=== PATIENT | female | born 1960 | race Caucasian/White ===

== ENCOUNTER → 2016-07-11 | Outpatient (CLI) | payer OTHER ==
[~2016-07-11] MED LIST: BENZONATATE200 MG PO; BLEPH-105 ML OP; BYDUREON2 MG SQ; ETODOLAC500 MG PO; FLUNISOLIDE25 ML; JANUVIA 100 MG100 MG PO; LASIX 40 MG TAB40 MG PO; LEVOTHYROXINE100 MCG PO; LISINOPRIL5 MG PO; LOPRESSOR 25 MG25 MG PO; METHOCARBAMOL750 MG PO; NYSTATIN1 EAC1 TOP; POTASSIUM CHLO20 ME1 PO; SIMVASTATIN40 MG PO; SULFACETAMIDE; ZANTAC300 MG PO
== END ==
LOC: SLEEP 21:30
DX: G47.33 Obstructive sleep apnea (adult) (pediatric) (principal)
CPT/HCPCS: 95810

== ENCOUNTER → 2016-07-12 | Outpatient (CLI) | payer OTHER | LOC: RT 06:59 | DX: G47.33 Obstructive sleep apnea (adult) (pediatric) (principal) | CPT/HCPCS: 36600; 82803 ==

== ENCOUNTER 2016-08-12 13:56 | Observation (INO) | payer OTHER ==
[~2016-08-12] VITALS: Ht 152.4 cm; Wt 173.3 kg
[2016-08-12 14:53] LABS: HEMOGLOBIN 14.3 gm/dl (12.3-15.3); RED BLOOD COUNT 5.04 M/UL (4.00-5.10); WHITE BLOOD COUNT 9.2 K/UL (4.5-11.0)
[2016-08-12 15:19] LABS: BUN/CREATININE RATIO 19 (0-10)
[2016-08-12] MEDS ORDERED: ETODOLAC500 MG PO (18:21)
[2016-08-12] MEDS ORDERED: BYDUREON2 MG SQ (18:21)
[2016-08-12] MEDS ORDERED: LASIX 40 MG TAB40 MG PO (18:22)
[2016-08-12] MEDS ORDERED: LEVOTHYROXINE100 MCG PO (18:22)
[2016-08-12] MEDS ORDERED: JANUVIA 100 MG100 MG PO (18:23)
[2016-08-12] MEDS ORDERED: LOPRESSOR 25 MG25 MG PO (18:23)
[2016-08-12] MEDS ORDERED: POTASSIUM CHLO20 ME1 PO (18:24)
[2016-08-12] MEDS ORDERED: SIMVASTATIN40 MG PO (18:24)
[2016-08-12] MEDS ORDERED: ZANTAC300 MG PO (18:25)
[2016-08-12] MEDS ORDERED: LISINOPRIL5 MG PO (18:25)
[2016-08-12] MEDS ORDERED: METHOCARBAMOL750 MG PO (18:25)
[2016-08-12] MEDS ORDERED: BENZONATATE200 MG PO (18:27)
[2016-08-12] MEDS ORDERED: SULFACETAMIDE (18:34)
[2016-08-13] MEDS ORDERED: BLEPH-105 ML OP (17:07)
[2016-08-13] MEDS ORDERED: FLUNISOLIDE25 ML (18:21)
[2016-08-13] MEDS ORDERED: NYSTATIN1 EAC1 TOP (18:23)
== END 2016-08-13 18:00 | disposition home or self-care (01) ==
LOC: ER1 13:56 → ZEROF 16:16 → M/S 17:47
PROVIDERS: Emergency Medicine; ADMIT Internal Medicine
DX: R07.89 Other chest pain (principal); I48.92 Unspecified atrial flutter; I10 Essential (primary) hypertension; E78.5 Hyperlipidemia, unspecified; E11.9 Type 2 diabetes mellitus without complications; E03.9 Hypothyroidism, unspecified; G47.33 Obstructive sleep apnea (adult) (pediatric); K21.9 Gastro-esophageal reflux disease without esophagitis; E66.01 Morbid (severe) obesity due to excess calories; Z99.81 Dependence on supplemental oxygen; Z88.0 Allergy status to penicillin; Z88.6 Allergy status to analgesic agent; Z88.8 Allergy status to other drugs, medicaments and biological substances; Z79.899 Other long term (current) drug therapy
CPT/HCPCS: ECHO; 36415; 71010; 73030; 80053; 81001; 82550; 82553; 82962; 83036; 83690; 83735; 83874; 83880; 84443; 84484; 85025; 93005; 93306; 99285; G0378; J1650

== ENCOUNTER → 2016-10-10 | Outpatient (CLI) | payer OTHER | LOC: SLEEP 08:55 | DX: G47.33 Obstructive sleep apnea (adult) (pediatric) (principal) | CPT/HCPCS: 95811 ==

== ENCOUNTER → 2020-11-08 | Outpatient (CLI) | payer OTHER ==
[~2020-11-08] MED LIST changes: +AMLODIPINE BESYL5 MG NG; +BAYER CHEWABLE81 MG PO; +BYDUREON P2 MG/0.65 SQ; +CARAFATE 1 GM TA1 GM PO; +CIPRO500 MG PO; +CLINDAMYCIN HC300 MG PO; +DICLOFENAC POTA50 MG PO; +EFFER-K 20 MEQ20 MEQ PO; +ELIQUIS5 MG PO; +FLONASE 0.05% N16 GM; -FLUNISOLIDE25 ML; +HYDROCODON-ACE1 EAC4 PO; +LASIX40 MG PO; +LEVAQUIN750 MG PO; +LOPRESSOR 25 MG25 MG NG; +MEDROL DOSEPAK 24 MG PO; -METHOCARBAMOL750 MG PO; +MULTAQ 400 MG400 MG PO; +NASALIDE INH SO25 ML; +NEOMYCIN-POLYMY10 ML EARBOTH; +OMEPRAZOLE40 MG PO; +PHENERGAN 25 MG25 M1 PO; +ROBAXIN-750750 MG PO; +SINGULAIR10 MG PO; +VITAMIN B-121000 MCG PO; +VOLTAREN ARTHRI20 GM TP; +XARELTO20 MG PO; +XYZAL5 MG PO; +ZESTRIL5 MG PO; +ZOFRAN4 MG PO
== END ==
LOC: HEART 5 14:01
DX: R94.31 Abnormal electrocardiogram [ECG] [EKG] (principal)

== ENCOUNTER → 2020-11-15 | Outpatient (CLI) | payer OTHER ==
[2020-11-15 10:59] LABS: HEMOGLOBIN 12.1 gm/dl (12.3-15.3); RED BLOOD COUNT 4.21 M/UL (4.00-5.10); WHITE BLOOD COUNT 8.3 K/UL (4.5-11.0)
== END ==
LOC: LAB 09:56
PROVIDERS: Internal Medicine Cardiovascular Disease
DX: I48.91 Unspecified atrial fibrillation (principal); I10 Essential (primary) hypertension; I49.5 Sick sinus syndrome; I45.5 Other specified heart block; R09.89 Other specified symptoms and signs involving the circulatory and respiratory systems
CPT/HCPCS: 36415; 71046; 80048; 85025

== ENCOUNTER 2020-11-17 12:16 | Outpatient (CLI) | payer OTHER ==
[~2020-11-17] VITALS: Ht 170.2 cm; Wt 153.3 kg
[~2020-11-17 12:16] MED LIST changes: -BAYER CHEWABLE81 MG PO; -CIPRO500 MG PO; -CLINDAMYCIN HC300 MG PO; -DICLOFENAC POTA50 MG PO; -EFFER-K 20 MEQ20 MEQ PO; -ELIQUIS5 MG PO; -HYDROCODON-ACE1 EAC4 PO; -LASIX40 MG PO; -MULTAQ 400 MG400 MG PO; -NEOMYCIN-POLYMY10 ML EARBOTH; -PHENERGAN 25 MG25 M1 PO; -VITAMIN B-121000 MCG PO; -VOLTAREN ARTHRI20 GM TP; -ZESTRIL5 MG PO
[2020-11-17] MEDS ORDERED: DICLOFENAC POTA50 MG PO (13:04)
[2020-11-17] MEDS ORDERED: BAYER CHEWABLE81 MG PO (13:04)
[2020-11-17] MEDS ORDERED: EFFER-K 20 MEQ20 MEQ PO (13:04)
[2020-11-17] MEDS ORDERED: CIPRO500 MG PO (13:05)
[2020-11-17] MEDS ORDERED: VITAMIN B-121000 MCG PO (13:05)
[2020-11-17] MEDS ORDERED: VOLTAREN ARTHRI20 GM TP (13:06)
[2020-11-17] MEDS ORDERED: NEOMYCIN-POLYMY10 ML EARBOTH (13:11)
[2020-11-17] MEDS ORDERED: PHENERGAN 25 MG25 M1 PO (13:12)
[2020-11-17] MEDS ORDERED: ZESTRIL5 MG PO (13:12)
[2020-11-17] MEDS ORDERED: ELIQUIS5 MG PO (13:13)
[2020-11-17] MEDS ORDERED: LASIX40 MG PO (13:14)
[2020-11-17] MEDS ORDERED: LOPRESSOR 25 MG25 MG PO (13:15)
[2020-11-17] MEDS ORDERED: CLINDAMYCIN HC300 MG PO (15:58)
[2020-11-17] MEDS ORDERED: HYDROCODON-ACE1 EAC4 PO (15:58)
[2020-11-17] MEDS ORDERED: LASIX 40 MG TAB40 MG PO (16:38)
[2020-11-18] MEDS ORDERED: MULTAQ 400 MG400 MG PO (15:02)
== END 2020-11-18 16:33 | disposition home or self-care (01) ==
LOC: CATH 12:16 → M/S 16:10 → CATH 11-18 16:33
DX: I49.5 Sick sinus syndrome (principal); I48.0 Paroxysmal atrial fibrillation; I25.10 Atherosclerotic heart disease of native coronary artery without angina pectoris; I11.0 Hypertensive heart disease with heart failure; I50.32 Chronic diastolic (congestive) heart failure; I48.92 Unspecified atrial flutter; I45.5 Other specified heart block; E78.5 Hyperlipidemia, unspecified; E11.9 Type 2 diabetes mellitus without complications; G47.33 Obstructive sleep apnea (adult) (pediatric); J96.11 Chronic respiratory failure with hypoxia; E66.01 Morbid (severe) obesity due to excess calories; Z79.82 Long term (current) use of aspirin; Z79.899 Other long term (current) drug therapy; Z90.49 Acquired absence of other specified parts of digestive tract; Z98.890 Other specified postprocedural states; Z87.891 Personal history of nicotine dependence; Z82.49 Family history of ischemic heart disease and other diseases of the circulatory system; Z68.43 Body mass index [BMI] 50.0-59.9, adult
CPT/HCPCS: 33208; 71045; 82962; 93005; 99152; 99153; C1785; C1898; J1200; J1644; J1742; J2250; J3010; J3370; J7040; J7050; J7070; Q9965

== ENCOUNTER 2021-02-10 10:34 | Emergency (ER) | payer OTHER ==
[~2021-02-10] VITALS: Ht 170.2 cm; Wt 148.3 kg
[~2021-02-10 10:34] MED LIST changes: +BAYER CHEWABLE81 MG PO; +CIPRO500 MG PO; +CLINDAMYCIN HC300 MG PO; +DICLOFENAC POTA50 MG PO; +EFFER-K 20 MEQ20 MEQ PO; +ELIQUIS5 MG PO; +HYDROCODON-ACE1 EAC4 PO; +LASIX40 MG PO; +MULTAQ 400 MG400 MG PO; +NEOMYCIN-POLYMY10 ML EARBOTH; -NYSTATIN1 EAC1 TOP; +NYSTATIN1 EAC2 TOP; +PHENERGAN 25 MG25 M1 PO; +VITAMIN B-121000 MCG PO; +VOLTAREN ARTHRI20 GM TP; +ZESTRIL5 MG PO
== END 2021-02-10 14:25 | disposition home or self-care (01) ==
LOC: ER1 10:34
DX: U07.1 COVID-19 (principal); J12.82 Pneumonia due to coronavirus disease 2019; I48.91 Unspecified atrial fibrillation; I25.10 Atherosclerotic heart disease of native coronary artery without angina pectoris; J44.9 Chronic obstructive pulmonary disease, unspecified; I12.9 Hypertensive chronic kidney disease with stage 1 through stage 4 chronic kidney disease, or unspecified chronic kidney disease; E11.22 Type 2 diabetes mellitus with diabetic chronic kidney disease; N18.30 Chronic kidney disease, stage 3 unspecified; Z86.718 Personal history of other venous thrombosis and embolism; Z90.49 Acquired absence of other specified parts of digestive tract; Z88.1 Allergy status to other antibiotic agents; Z88.0 Allergy status to penicillin; Z88.5 Allergy status to narcotic agent; Z23 Encounter for immunization; Z95.1 Presence of aortocoronary bypass graft
CPT/HCPCS: 71045; 99285; M0243

== ENCOUNTER 2021-02-14 00:28 | Inpatient (IN) | payer OTHER ==
[~2021-02-14] VITALS: Ht 170.2 cm; Wt 161.5 kg
[2021-02-14 00:52] LABS: HEMOGLOBIN 11.7 gm/dl (12.3-15.3); RED BLOOD COUNT 4.4 M/UL (4.00-5.10); WHITE BLOOD COUNT 8.2 K/UL (4.5-11.0)
[2021-02-14 01:14] LABS: BUN/CREATININE RATIO 21 (0-10)
[2021-02-14 04:57] LABS: HEMOGLOBIN 11.8 gm/dl (12.3-15.3); RED BLOOD COUNT 4.42 M/UL (4.00-5.10); WHITE BLOOD COUNT 8.1 K/UL (4.5-11.0)
[2021-02-14] MEDS ORDERED: ULTRAM50 MG PO (09:44)
[2021-02-14] MEDS ORDERED: BACTRIM DS TAB1 EACH PO (09:44)
[2021-02-14] MEDS ORDERED: SIMVASTATIN10 MG PO (09:44)
[2021-02-14] MEDS ORDERED: ONDANSETRON HCL4 MG PO (09:45)
--- NOTE | 2021-02-14 21:15 | NUR ---
DR WADE AT BEDSIDE TO SEE PATIENT. REPORTED TO HIM LAST SET OF VITALS. BP 130/100 HR 78 RR 21 O2 93%. ORDERS TO LET HIM KNOW IS SYSTOLIC IS 160 OR GREATER BUT FOR NOW TO JUST MONITOR IT.
--- NOTE | 2021-02-14 22:21 | NUR ---
PATIENT CONTINUES TO PULL OF HER NASAL CANNULA AND HER OXYGEN DROPS QUICKLY TO THE 60'S AND 70'S. CALLED RESPIRATORY AND PT PLACED ON BIPAP MASK. TOLERATING WELL NOW. 02 IS 99%
--- NOTE | 2021-02-15 01:20 | NUR ---
PATIENT CONTINUING TO PULL HER OXYGEN OFF AND STRIPPING HER GOWN OFF ALONG WITH THE MONITOR. NOTIFIED AND ORDERS FOR RESTRAINTS RECIEVED. NOTIFIED ROEL ESPINOS[employer]ERAL GREETER. MULTIPLE REDIRECTION ATTEMPTS TRIED PRIOR TO THIS WITH ALL UNSUCCESSFUL.
[2021-02-15 03:57] LABS: HEMOGLOBIN 11.3 gm/dl (12.3-15.3); RED BLOOD COUNT 4.26 M/UL (4.00-5.10); WHITE BLOOD COUNT 7.7 K/UL (4.5-11.0)
--- NOTE | 2021-02-15 04:25 | NUR ---
CALLED [facility] OF 5.5 TO ORDERS RECIEVED.
--- NOTE | 2021-02-15 23:08 | NUR ---
2109 PATIENT PULLING OFF MASK AND OXYGEN DESPITE STAFF TRYING TO REDIRECT AND DISTRACT. SHE IS UNCOOPERATIVE AND NON COMPLIANT. CONFUSED. NOTIFIED DR WARREN AND ORDERS RECIEVED.
--- NOTE | 2021-02-16 01:30 | NUR ---
LATE ENTRY 1930 UPON ASSESSMENT PATIENT'S LEFT WRIST HAS VERY LARGE ECCYMOSIS SPOT. DUE TO PATIENT PULLING AGAINST RESTRAINTS. RESTRAINTS REMOVED AND NOTIFIED MD. XIAO AT BEDSIDE TO HELP MONITOR PATIENT AND KEEP HER FROM PULLING OXYGEN OFF.
[2021-02-16 05:24] LABS: HEMOGLOBIN 10.1 gm/dl (12.3-15.3); RED BLOOD COUNT 3.96 M/UL (4.00-5.10); WHITE BLOOD COUNT 7.5 K/UL (4.5-11.0)
[2021-02-17 08:02] LABS: HEMOGLOBIN 11.9 gm/dl (12.3-15.3); WHITE BLOOD COUNT 9.2 K/UL (4.5-11.0)
[2021-02-17 08:04] LABS: RED BLOOD COUNT 4.64 M/UL (4.00-5.10)
[2021-02-17 22:44] LABS: BUN/CREATININE RATIO 39 (0-10)
[2021-02-18 06:19] LABS: HEMOGLOBIN 10.1 gm/dl (12.3-15.3)
[2021-02-18 06:23] LABS: RED BLOOD COUNT 3.93 M/UL (4.00-5.10); WHITE BLOOD COUNT 4.2 K/UL (4.5-11.0)
[2021-02-18 06:43] LABS: BUN/CREATININE RATIO 38 (0-10)
[2021-02-19 03:58] LABS: HEMOGLOBIN 10.3 gm/dl (12.3-15.3); RED BLOOD COUNT 3.99 M/UL (4.00-5.10)
[2021-02-19 04:24] LABS: BUN/CREATININE RATIO 44 (0-10)
[2021-02-19 05:26] LABS: WHITE BLOOD COUNT 5.3 K/UL (4.5-11.0)
[2021-02-20 05:33] LABS: HEMOGLOBIN 10.4 gm/dl (12.3-15.3); RED BLOOD COUNT 3.99 M/UL (4.00-5.10)
[2021-02-20 06:35] LABS: BUN/CREATININE RATIO 60 (0-10)
[2021-02-21 05:12] LABS: HEMOGLOBIN 11.3 gm/dl (12.3-15.3); RED BLOOD COUNT 4.36 M/UL (4.00-5.10)
[2021-02-21 05:19] LABS: WHITE BLOOD COUNT 7.1 K/UL (4.5-11.0)
[2021-02-21 05:32] LABS: BUN/CREATININE RATIO 73 (0-10)
[2021-02-22 04:49] LABS: HEMOGLOBIN 11.6 gm/dl (12.3-15.3); RED BLOOD COUNT 4.49 M/UL (4.00-5.10)
[2021-02-22 04:52] LABS: WHITE BLOOD COUNT 5.3 K/UL (4.5-11.0)
[2021-02-22 05:03] LABS: BUN/CREATININE RATIO 77 (0-10)
[2021-02-23 08:40] LABS: BUN/CREATININE RATIO 74 (0-10)
[2021-02-23 08:50] LABS: HEMOGLOBIN 11.8 gm/dl (12.3-15.3); RED BLOOD COUNT 4.5 M/UL (4.00-5.10)
[2021-02-23 08:52] LABS: WHITE BLOOD COUNT 6.9 K/UL (4.5-11.0)
[2021-02-24 05:51] LABS: HEMOGLOBIN 12.6 gm/dl (12.3-15.3)
[2021-02-24 05:57] LABS: WHITE BLOOD COUNT 9.8 K/UL (4.5-11.0)
[2021-02-24 06:15] LABS: BUN/CREATININE RATIO 61 (0-10)
--- NOTE | 2021-02-24 11:16 | NUR ---
AT [address] BERNAL IN REGARDS TO PATIENT CONTINUED NAUSEA AND PULMONOLOGY'S STANDPOINT ON TRANSFERRING THE PATIENT TO MED-SURG. STATED SHE WOULD PUT IN ORDERS FOR MEDICATIONS AND TRANSFER.
--- NOTE | 2021-02-24 11:19 | NUR ---
LATE ENTRY AT [address] WARREN IN REGARDS TO PATIENT EXPERIENCING NAUSEA RECEIVED ORDER FOR LAKISHA.
--- NOTE | 2021-02-24 18:56 | NUR ---
LATE ENTRY AT [address] BERNAL REGARDING PATIENT BACK PAIN AND CONSTIPATION. NEW ORDERS RECEIVED. TOLD DR. BERNAL WOULD CONTACT FAMILY IN REGARDS TO TRUE ALLERGIES WITH TRAMADOL AND CODEINE.
--- NOTE | 2021-02-24 18:58 | NUR ---
AT 1750 SPOKE WITH PATIENT DAUGHTER WHO STATE SHE WAS UNSURE WHAT MEDICATIONS THE PATIENT WAS TAKING FOR PAIN. PATEINT DAUGHTER STATED SHE WOULD CONTACT THE PRIMARY PHYSICIAN AND VERFIY ALLERGIES AND WHAT MEDICATIONS THE PATIENT WAS ON.
[2021-02-25 05:47] LABS: HEMOGLOBIN 11.9 gm/dl (12.3-15.3); RED BLOOD COUNT 4.51 M/UL (4.00-5.10); WHITE BLOOD COUNT 11.4 K/UL (4.5-11.0)
[2021-02-25 06:15] LABS: BUN/CREATININE RATIO 61 (0-10)
[2021-02-26 03:18] LABS: RED BLOOD COUNT 4.26 M/UL (4.00-5.10)
[2021-02-26 03:19] LABS: WHITE BLOOD COUNT 6.4 K/UL (4.5-11.0)
[2021-02-26 03:51] LABS: BUN/CREATININE RATIO 50 (0-10)
[2021-02-27 04:59] LABS: HEMOGLOBIN 10.7 gm/dl (12.3-15.3); RED BLOOD COUNT 4.16 M/UL (4.00-5.10)
[2021-02-27 05:01] LABS: WHITE BLOOD COUNT 8.3 K/UL (4.5-11.0)
[2021-02-27 05:26] LABS: BUN/CREATININE RATIO 39 (0-10)
[2021-02-28 09:59] LABS: HEMOGLOBIN 10.6 gm/dl (12.3-15.3); RED BLOOD COUNT 3.97 M/UL (4.00-5.10); WHITE BLOOD COUNT 7.8 K/UL (4.5-11.0)
[2021-02-28 10:23] LABS: BUN/CREATININE RATIO 31 (0-10)
[2021-03-01 03:37] LABS: HEMOGLOBIN 10.4 gm/dl (12.3-15.3); RED BLOOD COUNT 3.91 M/UL (4.00-5.10); WHITE BLOOD COUNT 7.9 K/UL (4.5-11.0)
[2021-03-01 04:04] LABS: BUN/CREATININE RATIO 25 (0-10)
[2021-03-02 03:24] LABS: HEMOGLOBIN 9.9 gm/dl (12.3-15.3); RED BLOOD COUNT 3.73 M/UL (4.00-5.10); WHITE BLOOD COUNT 8.7 K/UL (4.5-11.0)
[2021-03-02 04:07] LABS: BUN/CREATININE RATIO 19 (0-10)
[2021-03-02] MEDS ORDERED: ACETAMINOPHEN325 MG PO (09:38)
[2021-03-02] MEDS ORDERED: POLYETHYLENE GL17 GM PO (09:38)
[2021-03-02] MEDS ORDERED: DOCUSATE SODIU100 MG PO (09:38)
[2021-03-02] MEDS ORDERED: TRAMADOL HCL50 MG PO (09:38)
[2021-03-02] MEDS ORDERED: REMERON 15 MG T15 MG PO (09:38)
== END 2021-03-02 20:45 | DRG 207 ==
LOC: ER1 00:28 → CDU 03:07 → PROG CARE 03:07 → CCU 03:07 → PROG CARE 05:34 → CCU 02-17 09:17 → PROG CARE 02-25 14:16
PROVIDERS: Family Medicine; Internal Medicine; Internal Medicine Infectious Disease; Internal Medicine Nephrology; Internal Medicine Pulmonary Disease; ADMIT Internal Medicine
PROC: 8E0ZXY6 Isolation (ICD-10-PCS; 2021-02-14)
PROC: 5A0945A Assistance with Respiratory Ventilation, 24-96 Consecutive Hours, High Flow/Velocity Cannula (ICD-10-PCS; 2021-02-14)
PROC: 5A1955Z Respiratory Ventilation, Greater than 96 Consecutive Hours (ICD-10-PCS; 2021-02-17)
PROC: 02HV33Z Insertion of Infusion Device into Superior Vena Cava, Percutaneous Approach (ICD-10-PCS; 2021-02-17)
PROC: B548ZZA Ultrasonography of Superior Vena Cava, Guidance (ICD-10-PCS; 2021-02-17)
PROC: 0BH17EZ Insertion of Endotracheal Airway into Trachea, Via Natural or Artificial Opening (ICD-10-PCS; 2021-02-17)
PROC: 3E0333Z Introduction of Anti-inflammatory into Peripheral Vein, Percutaneous Approach (ICD-10-PCS; 2021-02-17)
PROC: 0DH63UZ Insertion of Feeding Device into Stomach, Percutaneous Approach (ICD-10-PCS; principal; 2021-02-18)
PROC: 3E0G76Z Introduction of Nutritional Substance into Upper GI, Via Natural or Artificial Opening (ICD-10-PCS; 2021-02-18)
PROC: 5A0945A Assistance with Respiratory Ventilation, 24-96 Consecutive Hours, High Flow/Velocity Cannula (ICD-10-PCS; 2021-02-22)
DX: U07.1 COVID-19 (principal); J12.82 Pneumonia due to coronavirus disease 2019; J80 Acute respiratory distress syndrome; N17.0 Acute kidney failure with tubular necrosis; J15.9 Unspecified bacterial pneumonia; G93.41 Metabolic encephalopathy; E66.2 Morbid (severe) obesity with alveolar hypoventilation; J98.11 Atelectasis; I50.32 Chronic diastolic (congestive) heart failure; J44.0 Chronic obstructive pulmonary disease with (acute) lower respiratory infection; E87.0 Hyperosmolality and hypernatremia; I47.1 Supraventricular tachycardia; E86.0 Dehydration; E87.5 Hyperkalemia; R53.81 Other malaise; F32.A Depression, unspecified; F41.9 Anxiety disorder, unspecified; L89.156 Pressure-induced deep tissue damage of sacral region; E66.01 Morbid (severe) obesity due to excess calories; G47.33 Obstructive sleep apnea (adult) (pediatric); E11.9 Type 2 diabetes mellitus without complications; E78.5 Hyperlipidemia, unspecified; E03.9 Hypothyroidism, unspecified; I49.5 Sick sinus syndrome; Z95.0 Presence of cardiac pacemaker; Z91.14 Patient's other noncompliance with medication regimen; Z79.4 Long term (current) use of insulin; Z88.5 Allergy status to narcotic agent; Z88.0 Allergy status to penicillin; Z82.49 Family history of ischemic heart disease and other diseases of the circulatory system; Z80.6 Family history of leukemia
CPT/HCPCS: 31500; 36415; 36600; 70450; 71045; 74018; 80048; 80053; 82550; 82553; 82803; 82962; 83036; 83605; 83735; 83874; 83880; 84100; 84132; 84484; 85025; 85027; 86140; 87040; 87070; 87205; 92526; 92610; 94003; 94640; 94660; 94760; 96374; 96375; 97110; 97110-GP-CQ; 97162; 97167; 97530-GP-CQ; 99285; J0330; J0456; J0696; J1100; J1205; J1630; J1940; J2060; J2185; J2405; J2550; J2704; J2930; J3010; J3486; J7030; J7040; J7120; U0002

== ENCOUNTER → 2021-03-24 | Outpatient (CLI) | payer OTHER ==
[~2021-03-24] MED LIST changes: +ACETAMINOPHEN325 MG PO; +BACTRIM DS TAB1 EACH PO; +DOCUSATE SODIU100 MG PO; +ONDANSETRON HCL4 MG PO; +POLYETHYLENE GL17 GM PO; +REMERON 15 MG T15 MG PO; +SIMVASTATIN10 MG PO; +TRAMADOL HCL50 MG PO; +ULTRAM50 MG PO
== END ==
LOC: WCC 08:00
DX: L89.303 Pressure ulcer of unspecified buttock, stage 3 (principal); Z88.0 Allergy status to penicillin; Z87.891 Personal history of nicotine dependence; Z88.5 Allergy status to narcotic agent; Z79.01 Long term (current) use of anticoagulants; E11.622 Type 2 diabetes mellitus with other skin ulcer; E66.01 Morbid (severe) obesity due to excess calories; Z86.16 Personal history of COVID-19; E11.22 Type 2 diabetes mellitus with diabetic chronic kidney disease; I48.91 Unspecified atrial fibrillation; I10 Essential (primary) hypertension; N18.9 Chronic kidney disease, unspecified; Z68.42 Body mass index [BMI] 45.0-49.9, adult; Z88.6 Allergy status to analgesic agent

== ENCOUNTER → 2021-03-31 | Outpatient (CLI) | payer OTHER ==
[~2021-03-31] MED LIST changes: +ALLOPURINOL300 MG PO; +FUROSEMIDE40 MG PO
== END ==
LOC: WCC 07:52
DX: L89.300 Pressure ulcer of unspecified buttock, unstageable (principal); E11.622 Type 2 diabetes mellitus with other skin ulcer; I11.0 Hypertensive heart disease with heart failure; I50.9 Heart failure, unspecified; J44.9 Chronic obstructive pulmonary disease, unspecified; E66.01 Morbid (severe) obesity due to excess calories; Z79.01 Long term (current) use of anticoagulants; Z68.42 Body mass index [BMI] 45.0-49.9, adult; Z86.16 Personal history of COVID-19; E11.22 Type 2 diabetes mellitus with diabetic chronic kidney disease; I48.91 Unspecified atrial fibrillation; Z72.3 Lack of physical exercise; Z88.0 Allergy status to penicillin; Z88.5 Allergy status to narcotic agent; Z88.6 Allergy status to analgesic agent

== ENCOUNTER 2021-04-04 16:14 | Inpatient (IN) | payer OTHER ==
[~2021-04-04] VITALS: Ht 170.2 cm; Wt 132.1 kg
[~2021-04-04 16:14] MED LIST changes: -ALLOPURINOL300 MG PO; -FUROSEMIDE40 MG PO
[2021-04-04 19:21] LABS: RED BLOOD COUNT 4.05 M/UL (4.00-5.10); WHITE BLOOD COUNT 7.8 K/UL (4.5-11.0)
[2021-04-05 07:30] LABS: RED BLOOD COUNT 3.78 M/UL (4.00-5.10)
[2021-04-05] MEDS ORDERED: TRAMADOL HCL50 MG PO (09:45)
[2021-04-05] MEDS ORDERED: FUROSEMIDE40 MG PO ×2 (09:46→09:47)
[2021-04-05] MEDS ORDERED: ALLOPURINOL300 MG PO (09:46)
[2021-04-05] MEDS ORDERED: LISINOPRIL5 MG PO (09:47)
[2021-04-05] MEDS ORDERED: FLONASE 0.05% N16 GM (09:47)
[2021-04-05] MEDS ORDERED: LEVOTHYROXINE100 MCG PO (09:48)
[2021-04-05 22:59] LABS: ACINETOBACTER BAUMANNII Not Detected (Negative); CANDIDA ALBICANS Not Detected (Negative); CANDIDA KRUSEI Not Detected (Negative); CANDIDA TROPICALIS Not Detected (Negative); ENTEROCOCCUS Not Detected (Negative); ESCHERICHIA COLI Not Detected (Negative); HAEMOPHILUS INFLUENZAE Not Detected (Negative); KLEBSIELLA OXYTOCA Not Detected (Negative); KLEBSIELLA PNEUMONIAE Not Detected (Negative); KPC-CARBAPENEM-RESISTANCE GENE Not Detected (Negative); PROTEUS Not Detected (Negative); PSEUDOMONAS AERUGINOSA Not Detected (Negative); SERRATIA MARCESANS Not Detected (Negative); STAPHYLOCOCCUS Not Detected (Negative); STAPHYLOCOCCUS AUREUS Not Detected (Negative); STREP AGALACTIAE (GROUP B) Not Detected (Negative); STREP PYOGENES (GROUP A) Not Detected (Negative); mecA (METHICILLIN RESIST GENE Not Detected (Negative); vanA/B (VANCOMYCIN RESIST GENE Not Detected (Negative)
[2021-04-06 00:44] LABS: STREPTOCOCCUS DETECTED (Negative)
[2021-04-06 04:58] LABS: RED BLOOD COUNT 3.42 M/UL (4.00-5.10); WHITE BLOOD COUNT 4.9 K/UL (4.5-11.0)
[2021-04-08 06:54] LABS: HEMOGLOBIN 9.1 gm/dl (12.3-15.3); RED BLOOD COUNT 3.32 M/UL (4.00-5.10); WHITE BLOOD COUNT 5.6 K/UL (4.5-11.0)
[2021-04-09 08:25] LABS: HEMOGLOBIN 8.4 gm/dl (12.3-15.3); RED BLOOD COUNT 3.19 M/UL (4.00-5.10)
[2021-04-10 07:15] LABS: HEMOGLOBIN 8.4 gm/dl (12.3-15.3); RED BLOOD COUNT 3.19 M/UL (4.00-5.10); WHITE BLOOD COUNT 5.3 K/UL (4.5-11.0)
[2021-04-11 07:05] LABS: HEMOGLOBIN 8.6 gm/dl (12.3-15.3); RED BLOOD COUNT 3.18 M/UL (4.00-5.10); WHITE BLOOD COUNT 4.8 K/UL (4.5-11.0)
[2021-04-11 07:32] LABS: BUN/CREATININE RATIO 15 (0-10)
--- NOTE | 2021-04-11 15:06 | NUR ---
[id number] midline placed in the left brachial vein with ultrasound guidance. Aspirates and flushes easily. Reference# [id number]
[2021-04-12] MEDS ORDERED: FUROSEMIDE40 MG PO (08:48)
[2021-04-12] MEDS ORDERED: ROCEPHIN IM/I2000 MG IV (08:49)
[2021-04-12] MEDS ORDERED: HYDROCODONE-ACET5 ML PO (08:54)
== END 2021-04-12 15:02 | disposition home health service (06) | DRG 682 ==
LOC: ER1 16:14 → CDU 22:21 → M/S 22:21
PROVIDERS: Internal Medicine; Internal Medicine Nephrology; Physician Assistant; Student in an Organized Health Care Education/Training Program; ADMIT Emergency Medicine
DX: N17.9 Acute kidney failure, unspecified (principal); L89.154 Pressure ulcer of sacral region, stage 4; Z20.822 Contact with and (suspected) exposure to COVID-19; I48.92 Unspecified atrial flutter; E87.0 Hyperosmolality and hypernatremia; I50.32 Chronic diastolic (congestive) heart failure; E66.2 Morbid (severe) obesity with alveolar hypoventilation; N30.00 Acute cystitis without hematuria; R78.81 Bacteremia; I13.0 Hypertensive heart and chronic kidney disease with heart failure and stage 1 through stage 4 chronic kidney disease, or unspecified chronic kidney disease; B96.20 Unspecified Escherichia coli [E. coli] as the cause of diseases classified elsewhere; E11.22 Type 2 diabetes mellitus with diabetic chronic kidney disease; I49.5 Sick sinus syndrome; B95.4 Other streptococcus as the cause of diseases classified elsewhere; B96.89 Other specified bacterial agents as the cause of diseases classified elsewhere; D63.1 Anemia in chronic kidney disease; N18.9 Chronic kidney disease, unspecified; B37.9 Candidiasis, unspecified; E78.5 Hyperlipidemia, unspecified; L89.156 Pressure-induced deep tissue damage of sacral region; W18.30XA Fall on same level, unspecified, initial encounter; E03.9 Hypothyroidism, unspecified; I48.0 Paroxysmal atrial fibrillation; E86.0 Dehydration; M19.90 Unspecified osteoarthritis, unspecified site; I95.9 Hypotension, unspecified; T50.1X5A Adverse effect of loop [high-ceiling] diuretics, initial encounter; Z79.1 Long term (current) use of non-steroidal anti-inflammatories (NSAID); Z79.01 Long term (current) use of anticoagulants; Z95.0 Presence of cardiac pacemaker; Z86.16 Personal history of COVID-19; Z87.01 Personal history of pneumonia (recurrent); Z99.81 Dependence on supplemental oxygen; Z98.891 History of uterine scar from previous surgery; Z90.49 Acquired absence of other specified parts of digestive tract; Z88.5 Allergy status to narcotic agent; Z88.0 Allergy status to penicillin; Z80.6 Family history of leukemia; Z82.49 Family history of ischemic heart disease and other diseases of the circulatory system; Z74.01 Bed confinement status
CPT/HCPCS: 36415; 73502; 73560; 80048; 80053; 81001; 82570; 82728; 82962; 83540; 83550; 83605; 83735; 84133; 84156; 84300; 85025; 85027; 87040; 87077; 87086; 87150; 87186; 89050; 99284; A6212; C1751; J0692; J0696; J2185; J3370; J7030; J7070; P9047; U0002

== ENCOUNTER → 2021-05-04 | Outpatient (CLI) | payer OTHER ==
[~2021-05-04] MED LIST changes: +ALLOPURINOL300 MG PO; +FUROSEMIDE40 MG PO; +HYDROCODONE-ACET5 ML PO; +ROCEPHIN IM/I2000 MG IV
== END | disposition home or self-care (01) ==
LOC: WCC 08:19
DX: L89.300 Pressure ulcer of unspecified buttock, unstageable (principal); I13.0 Hypertensive heart and chronic kidney disease with heart failure and stage 1 through stage 4 chronic kidney disease, or unspecified chronic kidney disease; E11.22 Type 2 diabetes mellitus with diabetic chronic kidney disease; N18.9 Chronic kidney disease, unspecified; I50.9 Heart failure, unspecified; N17.9 Acute kidney failure, unspecified; J44.9 Chronic obstructive pulmonary disease, unspecified; G47.30 Sleep apnea, unspecified; I48.91 Unspecified atrial fibrillation; E66.01 Morbid (severe) obesity due to excess calories; Z79.01 Long term (current) use of anticoagulants; Z79.2 Long term (current) use of antibiotics; Z79.899 Other long term (current) drug therapy; Z86.16 Personal history of COVID-19; Z68.42 Body mass index [BMI] 45.0-49.9, adult

== ENCOUNTER → 2021-05-19 | Outpatient (CLI) | payer OTHER | END | disposition home or self-care (01) | LOC: WCC 07:40 | DX: L89.300 Pressure ulcer of unspecified buttock, unstageable (principal); I12.9 Hypertensive chronic kidney disease with stage 1 through stage 4 chronic kidney disease, or unspecified chronic kidney disease; E11.22 Type 2 diabetes mellitus with diabetic chronic kidney disease; N18.9 Chronic kidney disease, unspecified; I48.91 Unspecified atrial fibrillation; E66.01 Morbid (severe) obesity due to excess calories; J44.9 Chronic obstructive pulmonary disease, unspecified; G47.30 Sleep apnea, unspecified; Z86.16 Personal history of COVID-19; Z68.42 Body mass index [BMI] 45.0-49.9, adult; Z72.3 Lack of physical exercise; Z79.01 Long term (current) use of anticoagulants; Z79.899 Other long term (current) drug therapy ==

== ENCOUNTER → 2021-06-02 | Outpatient (CLI) | payer OTHER | LOC: WCC 07:50 | DX: L89.300 Pressure ulcer of unspecified buttock, unstageable (principal); E11.622 Type 2 diabetes mellitus with other skin ulcer; L98.499 Non-pressure chronic ulcer of skin of other sites with unspecified severity; I13.0 Hypertensive heart and chronic kidney disease with heart failure and stage 1 through stage 4 chronic kidney disease, or unspecified chronic kidney disease; E11.22 Type 2 diabetes mellitus with diabetic chronic kidney disease; N18.9 Chronic kidney disease, unspecified; I50.9 Heart failure, unspecified; E66.01 Morbid (severe) obesity due to excess calories; I48.91 Unspecified atrial fibrillation; Z72.3 Lack of physical exercise; Z68.42 Body mass index [BMI] 45.0-49.9, adult; Z88.0 Allergy status to penicillin; Z88.5 Allergy status to narcotic agent; Z79.01 Long term (current) use of anticoagulants; Z79.84 Long term (current) use of oral hypoglycemic drugs ==

== ENCOUNTER → 2021-06-14 | Outpatient (CLI) | payer OTHER | LOC: WCC 07:45 | DX: E11.622 Type 2 diabetes mellitus with other skin ulcer (principal); L89.300 Pressure ulcer of unspecified buttock, unstageable; I13.0 Hypertensive heart and chronic kidney disease with heart failure and stage 1 through stage 4 chronic kidney disease, or unspecified chronic kidney disease; E11.22 Type 2 diabetes mellitus with diabetic chronic kidney disease; N18.9 Chronic kidney disease, unspecified; I50.9 Heart failure, unspecified; I48.91 Unspecified atrial fibrillation; E66.01 Morbid (severe) obesity due to excess calories; Z72.3 Lack of physical exercise; Z68.42 Body mass index [BMI] 45.0-49.9, adult; Z86.16 Personal history of COVID-19; Z88.0 Allergy status to penicillin; Z88.5 Allergy status to narcotic agent; Z79.01 Long term (current) use of anticoagulants; Z79.84 Long term (current) use of oral hypoglycemic drugs; Z79.899 Other long term (current) drug therapy ==

== ENCOUNTER → 2021-06-30 | Outpatient (CLI) | payer OTHER | LOC: HEART 5 06-08 11:15 | DX: M79.604 Pain in right leg (principal); M79.605 Pain in left leg; M79.671 Pain in right foot; M79.672 Pain in left foot ==

== ENCOUNTER → 2021-07-05 | Outpatient (CLI) | payer OTHER | END | disposition home or self-care (01) | LOC: WCC 07:30 | DX: L97.825 Non-pressure chronic ulcer of other part of left lower leg with muscle involvement without evidence of necrosis (principal); I11.0 Hypertensive heart disease with heart failure; I50.9 Heart failure, unspecified; J44.9 Chronic obstructive pulmonary disease, unspecified ==

== ENCOUNTER → 2021-07-18 | Outpatient (CLI) | payer OTHER | LOC: WCC 08:33 | DX: Z09 Encounter for follow-up examination after completed treatment for conditions other than malignant neoplasm (principal); E11.22 Type 2 diabetes mellitus with diabetic chronic kidney disease; I13.0 Hypertensive heart and chronic kidney disease with heart failure and stage 1 through stage 4 chronic kidney disease, or unspecified chronic kidney disease; N18.9 Chronic kidney disease, unspecified; I50.9 Heart failure, unspecified; I48.91 Unspecified atrial fibrillation; Z72.3 Lack of physical exercise; Z86.16 Personal history of COVID-19; E66.01 Morbid (severe) obesity due to excess calories; J44.9 Chronic obstructive pulmonary disease, unspecified; G47.30 Sleep apnea, unspecified; Z79.01 Long term (current) use of anticoagulants; Z79.899 Other long term (current) drug therapy | CPT/HCPCS: G0463 ==

== ENCOUNTER → 2021-08-11 | Outpatient (CLI) | payer OTHER | LOC: WCC 07:33 | DX: L03.315 Cellulitis of perineum (principal); E11.622 Type 2 diabetes mellitus with other skin ulcer; E66.01 Morbid (severe) obesity due to excess calories; Z86.16 Personal history of COVID-19; I13.0 Hypertensive heart and chronic kidney disease with heart failure and stage 1 through stage 4 chronic kidney disease, or unspecified chronic kidney disease; E11.22 Type 2 diabetes mellitus with diabetic chronic kidney disease; N18.9 Chronic kidney disease, unspecified; I50.9 Heart failure, unspecified; Z72.3 Lack of physical exercise; I48.91 Unspecified atrial fibrillation; L03.311 Cellulitis of abdominal wall | CPT/HCPCS: G0463 ==

== ENCOUNTER 2021-10-28 11:59 | Inpatient (IN) | payer OTHER ==
[~2021-10-28] VITALS: Ht 170 cm; Wt 168.0 kg
[2021-10-28 14:18] LABS: HEMOGLOBIN 8.8 gm/dl (12.3-15.3); RED BLOOD COUNT 3.61 M/UL (4.00-5.10); WHITE BLOOD COUNT 5.7 K/UL (4.5-11.0)
[2021-10-28] MEDS ORDERED: FUROSEMIDE20 MG PO (18:38)
[2021-10-28] MEDS ORDERED: MUPIROCIN22 GM TOP (18:39)
[2021-10-28] MEDS ORDERED: VITAMIN B-122500 MCG SL (18:39)
[2021-10-28] MEDS ORDERED: VITAMIN C500 M4 PO (18:40)
[2021-10-29 02:05] LABS: HEMOGLOBIN 8.9 gm/dl (12.3-15.3); RED BLOOD COUNT 3.62 M/UL (4.00-5.10)
[2021-10-29] MEDS ORDERED: SYNTHROID100 MCG PO (03:40)
[2021-10-29] MEDS ORDERED: GABAPENTIN100 MG PO (03:41)
[2021-10-29] MEDS ORDERED: HYDROCODON-ACE1 EAC4 PO (03:42)
[2021-10-30 07:37] LABS: HEMOGLOBIN 8.7 gm/dl (12.3-15.3); RED BLOOD COUNT 3.64 M/UL (4.00-5.10); WHITE BLOOD COUNT 7.8 K/UL (4.5-11.0)
[2021-11-01 03:07] LABS: HEMOGLOBIN 8.5 gm/dl (12.3-15.3); RED BLOOD COUNT 3.38 M/UL (4.00-5.10); WHITE BLOOD COUNT 6.6 K/UL (4.5-11.0)
--- NOTE | 2021-11-02 10:08 | NUR ---
GUIDO CATHETER FLUSHED WITH 300ML OF SALINE. FLUSHED UNTIL CLEAR FROM ALL BLOOD. PT TOLERATED WELL. 300ML RETURN OUT.
--- NOTE | 2021-11-02 10:30 | NUR ---
ATTEMPTED TO CALL REPORT TO [employer]. NOT ANSWERING WILL ATTEMPT AGAIN IN 15 MIN.
[2021-11-05 02:44] LABS: HEMOGLOBIN 8.5 gm/dl (12.3-15.3); RED BLOOD COUNT 3.41 M/UL (4.00-5.10); WHITE BLOOD COUNT 5.7 K/UL (4.5-11.0)
[2021-11-06 02:09] LABS: HEMOGLOBIN 7.9 gm/dl (12.3-15.3); RED BLOOD COUNT 3.17 M/UL (4.00-5.10); WHITE BLOOD COUNT 5.8 K/UL (4.5-11.0)
[2021-11-07 02:56] LABS: HEMOGLOBIN 7.7 gm/dl (12.3-15.3); RED BLOOD COUNT 3.07 M/UL (4.00-5.10); WHITE BLOOD COUNT 5.6 K/UL (4.5-11.0)
[2021-11-08 03:32] LABS: HEMOGLOBIN 7.7 gm/dl (12.3-15.3); RED BLOOD COUNT 3.05 M/UL (4.00-5.10); WHITE BLOOD COUNT 5.5 K/UL (4.5-11.0)
[2021-11-08] MEDS ORDERED: ROCEPHIN 1 GM AD1 GM IV (13:22)
[2021-11-08] MEDS ORDERED: BUMETANIDE1 MG PO (13:26)
== END 2021-11-08 14:31 | disposition short-term general hospital (02) | DRG 291 ==
LOC: ER1 11:59 → CDU 19:22 → M/S 19:22 → PROG CARE 19:22 → M/S 11-02 11:00
PROVIDERS: Family Medicine; Internal Medicine; Internal Medicine Nephrology; ADMIT Internal Medicine Infectious Disease
PROC: B24BZZZ Ultrasonography of Heart with Aorta (ICD-10-PCS; principal; 2021-10-29)
PROC: 5A09357 Assistance with Respiratory Ventilation, Less than 24 Consecutive Hours, Continuous Positive Airway Pressure (ICD-10-PCS; 2021-10-29)
PROC: 5A09357 Assistance with Respiratory Ventilation, Less than 24 Consecutive Hours, Continuous Positive Airway Pressure (ICD-10-PCS; 2021-10-31)
PROC: 5A09357 Assistance with Respiratory Ventilation, Less than 24 Consecutive Hours, Continuous Positive Airway Pressure (ICD-10-PCS; 2021-10-31)
PROC: 5A09357 Assistance with Respiratory Ventilation, Less than 24 Consecutive Hours, Continuous Positive Airway Pressure (ICD-10-PCS; 2021-10-31)
DX: I13.0 Hypertensive heart and chronic kidney disease with heart failure and stage 1 through stage 4 chronic kidney disease, or unspecified chronic kidney disease (principal); I50.33 Acute on chronic diastolic (congestive) heart failure; Z20.822 Contact with and (suspected) exposure to COVID-19; J96.21 Acute and chronic respiratory failure with hypoxia; J96.22 Acute and chronic respiratory failure with hypercapnia; N17.9 Acute kidney failure, unspecified; E66.2 Morbid (severe) obesity with alveolar hypoventilation; Z68.43 Body mass index [BMI] 50.0-59.9, adult; I49.5 Sick sinus syndrome; E11.22 Type 2 diabetes mellitus with diabetic chronic kidney disease; E03.9 Hypothyroidism, unspecified; D63.1 Anemia in chronic kidney disease; N18.30 Chronic kidney disease, stage 3 unspecified; D50.0 Iron deficiency anemia secondary to blood loss (chronic); I08.1 Rheumatic disorders of both mitral and tricuspid valves; E87.5 Hyperkalemia; N30.91 Cystitis, unspecified with hematuria; R53.81 Other malaise; I48.0 Paroxysmal atrial fibrillation; Z79.01 Long term (current) use of anticoagulants; Z95.0 Presence of cardiac pacemaker; Z99.3 Dependence on wheelchair; Z98.891 History of uterine scar from previous surgery; Z90.49 Acquired absence of other specified parts of digestive tract; Z82.49 Family history of ischemic heart disease and other diseases of the circulatory system; Z80.6 Family history of leukemia; Z88.0 Allergy status to penicillin; Z99.81 Dependence on supplemental oxygen
CPT/HCPCS: ECHO; 36415; 36600; 71045; 80048; 80053; 82550; 82553; 82728; 82803; 82962; 83036; 83540; 83550; 83880; 84132; 84484; 84550; 85007; 85025; 85027; 85610; 85730; 93005; 93306; 94640; 94664; 94760; 96374; 97110; 97110-GP-CQ; 97116; 97116-GP-CQ; 97161; 97165; 97530; 97530-GP-CQ; 99285; J0696; J1756; J1940; P9047; Q9957